=== PATIENT | male | born 1945 | race Caucasian/White ===

== ENCOUNTER 2023-02-10 07:24 | Day surgery (SDC) | payer MEDICARE ==
[2023-02-08 10:24] LABS: BASOPHILS # (AUTO) 0.07 K/uL (0.00-0.20); EOSINOPHILS # (AUTO) 0.24 K/uL (0.00-0.70); EOSINOPHILS % (AUTO) 3.4 % (0.0-8.0); HEMATOCRIT 41.8 % (42-54); IMMATURE GRANULOCYTE ABSOLUTE 0.01 K/uL (0-1); LYMPHOCYTES # (AUTO) 2.4 K/uL (1.0-4.8); LYMPHOCYTES % (AUTO) 33.6 % (21.0-51.0); MEAN CORPUSCULAR HEMOGLOBIN 31.5 pg (27.0-33.0); MEAN CORPUSCULAR HGB CONC 33.5 g/dL (32.0-36.0); MEAN CORPUSCULAR VOLUME 93.9 fL (79-99); MONOCYTES # (AUTO) 0.7 K/uL (0.1-1.0); MONOCYTES % (AUTO) 10.1 % (3.0-13.0); NEUTROPHILS # (AUTO) 3.6 K/uL (1.8-7.7); NEUTROPHILS % (AUTO) 51.8 % (40.0-77.0); PLATELET COUNT (AUTO) 171 K/uL (130-400); RED BLOOD CELL COUNT(AUTO) 4.45 MIL/uL (4.50-6.20); RED CELL DISTRIBUTION WIDTH 13.7 % (11.0-15.5)
[2023-02-08 10:32] LABS: CREATININE 0.9 mg/dL (0.5-1.5); POTASSIUM 4.3 mmol/L (3.5-5.1)
[2023-02-08 10:41] VITALS: BP 122/60; PULSE 57; RESP 19
[2023-02-10] VITALS (17 sets, daily range): BP systolic 94–118; BP diastolic 48–70; PULSE 50–68; RESP 12–18
[~2023-02-10] VITALS: Ht 175.3 cm; Wt 80.7 kg
[~2023-02-10 07:24] MED LIST: ASHW500C PO; ATOR40TA69 PO; AZEL137S11 NS; CALC-1038 PO; CARV12.511 PO; CARV6.25 PO; CHOL-34 PO; DUTA0.5C37 PO; FLUT16H NASAL; MORINGA PO; MULT-1285 PO; OLIVE LEAF EXTRACT PO; TADA20TA43 PO; TICA60TA PO
[2023-02-10] MEDS ORDERED: CEFTRIAXONE 1G VIAL ONE (07:53)
[2023-02-10] MEDS ORDERED: LACTATED RINGERS 1000ML 1,000 ML IV ONE (07:54)
[2023-02-10] MEDS ORDERED: ONDANSETRON 4MG INJ ONE (07:59)
[2023-02-10] MEDS ORDERED: GLYCOPYRROLATE 1 MG/5 ML SYRINGE ONE (07:59)
[2023-02-10] MEDS ORDERED: LIDOCAINE PF 100MG/5ML (2%) SYRINGE 5ML ONE (07:59)
[2023-02-10] MEDS ORDERED: SUCCINYLCHOLINE 200MG/10ML SYR ONE (07:59)
[2023-02-10] MEDS ORDERED: DEXAMETHASONE SOD PHOSPHATE 10MG/ML 1ML VIAL ONE (07:59)
[2023-02-10] MEDS ORDERED: MIDAZOLAM HCL 1 MG/ML 2ML VIAL ONE (07:59)
[2023-02-10] MEDS ORDERED: PROPOFOL 10 MG/ML 20ML VIAL IV ONE (07:59)
[2023-02-10] MEDS ORDERED: FENTANYL CITRATE PF 50 MCG/1 ML 2ML VIAL ONE ×2 (08:00→10:18)
[2023-02-10] MEDS ORDERED: NEOSTIGMINE 5MG/5ML SYR IV ONE (08:00)
[2023-02-10] MEDS ORDERED: ROCURONIUM 10MG/1ML SYR 10 MG/ML ML ONE (08:00)
[2023-02-10] MEDS ORDERED: PHENAZOPYRIDINE HCL 200 MG TABLET ONE (12:25)
== END 2023-02-10 12:52 | disposition home or self-care (01) ==
LOC: DAH 07:24
PROVIDERS: ATTEND Urology
DX: N40.1 Benign prostatic hyperplasia with lower urinary tract symptoms (principal); Z20.822 Contact with and (suspected) exposure to COVID-19; R39.14 Feeling of incomplete bladder emptying; R39.12 Poor urinary stream; N32.89 Other specified disorders of bladder; I10 Essential (primary) hypertension; I25.10 Atherosclerotic heart disease of native coronary artery without angina pectoris; E78.2 Mixed hyperlipidemia; G60.8 Other hereditary and idiopathic neuropathies; M79.609 Pain in unspecified limb; Z95.5 Presence of coronary angioplasty implant and graft; Z98.890 Other specified postprocedural states; Z90.49 Acquired absence of other specified parts of digestive tract; Z98.52 Vasectomy status
CPT/HCPCS: 80048; 85025; 36415; 52648; 93005; 88305; A6260; A4663; J7120 ×2; A4354; A4340; J3010 ×2; J0330; J3490; J1100; J2710; J2001; J0696; J2250; J2704; J2405; A4358; A4215; A4223; A4222; A4221; A4600; A4510

== ENCOUNTER 2023-02-17 14:02 | Observation (INO) | payer MEDICARE ==
[~2023-02-17] VITALS: Ht 175.3 cm; Wt 79.6 kg
[2023-02-17 15:45] LABS: BASOPHILS # (AUTO) 0.09 K/uL (0.00-0.20); BASOPHILS % (AUTO) 0.6 % (0.0-5.0); EOSINOPHILS # (AUTO) 0.34 K/uL (0.00-0.70); EOSINOPHILS % (AUTO) 2.2 % (0.0-8.0); HEMATOCRIT 45.5 % (42-54); IMMATURE GRANULOCYTE ABSOLUTE 0.09 K/uL (0-1); LYMPHOCYTES # (AUTO) 2.5 K/uL (1.0-4.8); LYMPHOCYTES % (AUTO) 16.6 % (21.0-51.0); MEAN CORPUSCULAR HEMOGLOBIN 31.3 pg (27.0-33.0); MEAN CORPUSCULAR HGB CONC 33.8 g/dL (32.0-36.0); MEAN CORPUSCULAR VOLUME 92.5 fL (79-99); MONOCYTES # (AUTO) 1.1 K/uL (0.1-1.0); NEUTROPHILS # (AUTO) 11.2 K/uL (1.8-7.7); PLATELET COUNT (AUTO) 173 K/uL (130-400); RED BLOOD CELL COUNT(AUTO) 4.92 MIL/uL (4.50-6.20); RED CELL DISTRIBUTION WIDTH 13.4 % (11.0-15.5); WHITE BLOOD COUNT (AUTO) 15.3 K/uL (4.8-10.8)
[2023-02-17] MEDS ORDERED: ASPIRIN 325MG TAB PO ONE (16:00)
[2023-02-17] MEDS ORDERED: FAMOTIDINE 20MG VIAL IV ONE (16:00)
[2023-02-17] MEDS ORDERED: METOCLOPRAMIDE 10 MG/2 ML VIAL IVP ONE (16:00)
[2023-02-17] MEDS ORDERED: 0.9%NACL 1000ML 1,000 ML IV ONE (16:00)
[2023-02-17 16:04] LABS: INR 0.94 (0.85-1.15)
[2023-02-17 16:06] LABS: PARTIAL THROMBOPLASTIN TIME 24.7 SEC (26.3-35.5)
[2023-02-17 16:09] LABS: ALBUMIN 3.7 g/dL (3.5-5.0); BILIRUBIN,TOTAL 0.9 mg/dL (0.2-1.0); CREATININE 1.1 mg/dL (0.5-1.5); TOTAL PROTEIN, SERUM 7.2 g/dL (6.0-8.3)
[2023-02-17 16:13] LABS: MYOGLOBIN 112 ng/mL (10-92)
[2023-02-17] MEDS: TICAGRELOR 90 MG TABLET PO SCH ×2 (18:02→18:05)
[2023-02-17] MEDS ORDERED: MORPHINE 2 MG SYG ONE (18:17)
[2023-02-17] MEDS ORDERED: MORPHINE 2 MG SYG IVP ONE (18:30)
[2023-02-17 21:45] VITALS: BP 127/68; PULSE 69; RESP 18
[2023-02-17] MEDS ORDERED: MORPHINE 2 MG SYG IVP PRN (23:00)
[2023-02-17] MEDS ORDERED: CEFTRIAXONE 1G VIAL IVPB SCH (23:00)
[2023-02-17] MEDS ORDERED: ONDANSETRON 4MG INJ IVP PRN (23:00)
[2023-02-17 23:40] VITALS: O2SAT 97
[2023-02-18] VITALS: BP 114/62; PULSE 63; RESP 18
[2023-02-18 04:00] VITALS: BP 129/67; PULSE 79; RESP 19
[2023-02-18 04:46] LABS: BASOPHILS # (AUTO) 0.04 K/uL (0.00-0.20); BASOPHILS % (AUTO) 0.3 % (0.0-5.0); EOSINOPHILS # (AUTO) 0.02 K/uL (0.00-0.70); EOSINOPHILS % (AUTO) 0.1 % (0.0-8.0); HEMATOCRIT 41.1 % (42-54); IMMATURE GRANULOCYTE ABSOLUTE 0.06 K/uL (0-1); LYMPHOCYTES # (AUTO) 1.9 K/uL (1.0-4.8); LYMPHOCYTES % (AUTO) 12.2 % (21.0-51.0); MEAN CORPUSCULAR HEMOGLOBIN 31.6 pg (27.0-33.0); MEAN CORPUSCULAR HGB CONC 34.1 g/dL (32.0-36.0); MEAN CORPUSCULAR VOLUME 92.8 fL (79-99); MONOCYTES # (AUTO) 1.6 K/uL (0.1-1.0); MONOCYTES % (AUTO) 10.2 % (3.0-13.0); NEUTROPHILS # (AUTO) 12.2 K/uL (1.8-7.7); NEUTROPHILS % (AUTO) 76.8 % (40.0-77.0); PLATELET COUNT (AUTO) 154 K/uL (130-400); RED BLOOD CELL COUNT(AUTO) 4.43 MIL/uL (4.50-6.20); RED CELL DISTRIBUTION WIDTH 13.6 % (11.0-15.5); WHITE BLOOD COUNT (AUTO) 15.9 K/uL (4.8-10.8)
[2023-02-18 05:11] LABS: ALBUMIN 2.9 g/dL (3.5-5.0); BILIRUBIN,TOTAL 0.6 mg/dL (0.2-1.0); CREATININE 0.9 mg/dL (0.5-1.5); TOTAL PROTEIN, SERUM 5.8 g/dL (6.0-8.3)
[2023-02-18] MEDS ORDERED: PANTOPRAZOLE 40 MG/VIAL IVP SCH (09:00)
== END 2023-02-18 13:45 | disposition home or self-care (01) ==
LOC: EDH 14:02 → EDHIP 17:34 → 4AH 21:45
PROVIDERS: ADMIT Internal Medicine; ATTEND Internal Medicine
DX: K80.50 Calculus of bile duct without cholangitis or cholecystitis without obstruction (principal); I21.4 Non-ST elevation (NSTEMI) myocardial infarction; D72.829 Elevated white blood cell count, unspecified; I25.10 Atherosclerotic heart disease of native coronary artery without angina pectoris; N20.0 Calculus of kidney; E78.5 Hyperlipidemia, unspecified; Z79.02 Long term (current) use of antithrombotics/antiplatelets; Z87.442 Personal history of urinary calculi
CPT/HCPCS: 96376; 96365; 96375 ×2; 99285; 82550 ×3; 83874 ×4; 84484 ×4; 80053 ×2; 83690; 85025 ×2; 85610; 85730; 36415 ×2; 71045; 74176; 76700; 93005; G0378 ×20; J3490; J2270 ×2; J7030; J0696; J2405; J2765; C9113; 96361

== ENCOUNTER 2023-04-25 06:25 | Day surgery (SDC) | payer MEDICARE ==
[2023-04-20 10:42] LABS: BASOPHILS # (AUTO) 0.08 K/uL (0.00-0.20); BASOPHILS % (AUTO) 1.1 % (0.0-5.0); EOSINOPHILS # (AUTO) 0.34 K/uL (0.00-0.70); EOSINOPHILS % (AUTO) 4.8 % (0.0-8.0); HEMATOCRIT 44.4 % (42-54); IMMATURE GRANULOCYTE ABSOLUTE 0.02 K/uL (0-1); LYMPHOCYTES # (AUTO) 2.5 K/uL (1.0-4.8); LYMPHOCYTES % (AUTO) 35.4 % (21.0-51.0); MEAN CORPUSCULAR HEMOGLOBIN 31.2 pg (27.0-33.0); MEAN CORPUSCULAR HGB CONC 33.6 g/dL (32.0-36.0); MEAN CORPUSCULAR VOLUME 93.1 fL (79-99); MONOCYTES # (AUTO) 0.7 K/uL (0.1-1.0); MONOCYTES % (AUTO) 10.2 % (3.0-13.0); NEUTROPHILS # (AUTO) 3.4 K/uL (1.8-7.7); NEUTROPHILS % (AUTO) 48.2 % (40.0-77.0); PLATELET COUNT (AUTO) 182 K/uL (130-400); RED BLOOD CELL COUNT(AUTO) 4.77 MIL/uL (4.50-6.20); RED CELL DISTRIBUTION WIDTH 13.2 % (11.0-15.5); WHITE BLOOD COUNT (AUTO) 7.1 K/uL (4.8-10.8)
[2023-04-20 10:54] LABS: CREATININE 1.1 mg/dL (0.5-1.5); POTASSIUM 4.4 mmol/L (3.5-5.1)
[2023-04-20 10:56] LABS: INR 0.98 (0.85-1.15); PROTHROMBIN TIME 11.4 SEC (9.6-11.6)
[2023-04-20 10:57] LABS: PARTIAL THROMBOPLASTIN TIME 28.5 SEC (26.3-35.5)
[2023-04-20 14:44] VITALS: BP 118/62; PULSE 59; RESP 14
[~2023-04-25] VITALS: Ht 175.3 cm; Wt 78.7 kg
[2023-04-25] VITALS (16 sets, daily range): BP systolic 109–126; BP diastolic 55–76; PULSE 56–77; RESP 13–18
[~2023-04-25 06:25] MED LIST changes: -TICA60TA PO
[2023-04-25] MEDS ORDERED: FENTANYL CITRATE PF 50 MCG/1 ML 5ML AMP IV ONE ×2 (06:29→06:48)
[2023-04-25] MEDS ORDERED: BUPIVACAINE/PF 0.25% 30ML VIAL IJ ONE (06:48)
[2023-04-25] MEDS ORDERED: EPINEPHRINE PF 1MG (1:1,000) 1 MG/ML AMP ONE (06:48)
[2023-04-25] MEDS ORDERED: DEXAMETHASONE SOD PHOSPHATE 10MG/ML 1ML VIAL ONE (06:49)
[2023-04-25] MEDS ORDERED: SUCCINYLCHOLINE 200MG/10ML SYR ONE (06:49)
[2023-04-25] MEDS ORDERED: ONDANSETRON 4MG INJ ONE (06:49)
[2023-04-25] MEDS ORDERED: LIDOCAINE PF 100MG/5ML (2%) SYRINGE 5ML ONE (06:49)
[2023-04-25] MEDS ORDERED: NEOSTIGMINE 5MG/5ML SYR IV ONE (06:50)
[2023-04-25] MEDS ORDERED: ROCURONIUM 10MG/1ML SYR 10 MG/ML ML ONE (06:50)
[2023-04-25] MEDS ORDERED: PROPOFOL 10 MG/ML 20ML VIAL IV ONE (06:50)
[2023-04-25] MEDS ORDERED: GLYCOPYRROLATE 1 MG/5 ML SYRINGE ONE (06:50)
[2023-04-25] MEDS ORDERED: KETAMINE 50MG/ML SYRINGE 50 MG/ML DISP.SYRIN ONE (06:54)
[2023-04-25] MEDS ORDERED: MIDAZOLAM HCL 1 MG/ML 5ML VIAL ONE (06:54)
[2023-04-25] MEDS ORDERED: LIDOCAINE HCL 400MG/20ML VIAL ONE (06:54)
[2023-04-25] MEDS ORDERED: LACTATED RINGERS 1000ML 1,000 ML IV ONE (06:55)
[2023-04-25] MEDS ORDERED: CEFAZOLIN SODIUM 2 GM VIAL ONE (06:55)
[2023-04-25] MEDS ORDERED: CEFAZOLIN SODIUM 2 GM VIAL IVPB ONE (07:35)
[2023-04-25] MEDS ORDERED: BUPIVACAINE/EPI/PF 0.25% 30ML VIAL IJ ONE (07:43)
[2023-04-25] MEDS ORDERED: IOHEXOL-350 50ML VIAL IV ONE ×2 (07:52→07:55)
[2023-04-25] MEDS ORDERED: KETOROLAC 30MG VIAL (30MG/ML) ONE (07:55)
[2023-04-25] MEDS ORDERED: EPHEDRINE SULFATE 50 MG/ML AMPULE ONE (07:58)
[2023-04-25] MEDS ORDERED: DOCU-116 PO (08:14)
[2023-04-25] MEDS ORDERED: METH-662 PO (08:14)
[2023-04-25] MEDS ORDERED: TRAM50TA4 PO (08:14)
[2023-04-25] MEDS ORDERED: GABA-529 PO (08:14)
== END 2023-04-25 10:10 | disposition home or self-care (01) ==
LOC: DAH 06:25
PROVIDERS: ATTEND Surgery
DX: K80.10 Calculus of gallbladder with chronic cholecystitis without obstruction (principal); I10 Essential (primary) hypertension; I25.2 Old myocardial infarction; E04.9 Nontoxic goiter, unspecified; Z82.3 Family history of stroke; Z80.9 Family history of malignant neoplasm, unspecified; Z87.891 Personal history of nicotine dependence; Z72.89 Other problems related to lifestyle; Z79.899 Other long term (current) drug therapy; Z95.5 Presence of coronary angioplasty implant and graft; Z90.49 Acquired absence of other specified parts of digestive tract; Z98.890 Other specified postprocedural states
CPT/HCPCS: 80048; 85025; 85610; 85730; 36415; 47563; 88304; 74300; A6260; A4663; J7030; C1758; J7120; J3010 ×2; J3490 ×5; J0330; J1100; J2710; J0665; J2001; J0171; J2250; J2704; J2405; J1885; Q9967 ×2; J0690 ×2; A4649 ×2; A4930 ×2; A4215; A4223; A4222; A4221; A4216; A4600

== ENCOUNTER 2024-02-23 08:28 | Day surgery (SDC) | payer MEDICARE ==
[2024-02-22 15:08] LABS: BASOPHILS # (AUTO) 0.07 K/uL (0.00-0.20); BASOPHILS % (AUTO) 0.9 % (0.0-5.0); EOSINOPHILS # (AUTO) 0.26 K/uL (0.00-0.70); EOSINOPHILS % (AUTO) 3.4 % (0.0-8.0); HEMATOCRIT 41.1 % (42-54); IMMATURE GRANULOCYTE ABSOLUTE 0.02 K/uL (0-1); LYMPHOCYTES # (AUTO) 2.9 K/uL (1.0-4.8); LYMPHOCYTES % (AUTO) 38.6 % (21.0-51.0); MEAN CORPUSCULAR HEMOGLOBIN 31.6 pg (27.0-33.0); MEAN CORPUSCULAR HGB CONC 33.3 g/dL (32.0-36.0); MEAN CORPUSCULAR VOLUME 94.7 fL (79-99); MONOCYTES # (AUTO) 0.8 K/uL (0.1-1.0); MONOCYTES % (AUTO) 10.7 % (3.0-13.0); NEUTROPHILS # (AUTO) 3.5 K/uL (1.8-7.7); NEUTROPHILS % (AUTO) 46.1 % (40.0-77.0); PLATELET COUNT (AUTO) 170 K/uL (130-400); RED BLOOD CELL COUNT(AUTO) 4.34 MIL/uL (4.50-6.20); RED CELL DISTRIBUTION WIDTH 13.8 % (11.0-15.5); WHITE BLOOD COUNT (AUTO) 7.5 K/uL (4.8-10.8)
[2024-02-22 15:10] LABS: APPEARANCE,URINE CLEAR (CLEAR); BILIRUBIN,URINE NEGATIVE (NEGATIVE); COLOR,URINE YELLOW (YELLOW); GLUCOSE, URINE (UA) NEGATIVE (NEGATIVE); KETONES,URINE NEGATIVE (NEGATIVE); LEUKOCYTE ESTERASE ,URINE 75 Leu/uL (NEGATIVE); NITRATE,URINE NEGATIVE (NEGATIVE); OCCULT BLOOD,URINE NEGATIVE (NEGATIVE); PH,URINE 6.5 (5.0-8.0); PROTEIN,URINE 10 mg/dL (NEGATIVE); UROBILINOGEN,URINE 0.2 mg/dL (0.2-1.0)
[2024-02-22 15:11] LABS: ADD UA MICROSCOPIC YES
[2024-02-22 15:14] LABS: BACTERIA,URINE RARE /HPF (None Seen); MUCUS,URINE RARE LPF (None Seen); SQUAMOUS EPITHELIAL CELL,UR RARE /HPF (0-2); YEAST,URINE BUDDING RARE /HPF (None Seen)
[2024-02-22 15:16] LABS: CREATININE 1.1 mg/dL (0.5-1.3)
[2024-02-22 15:20] LABS: INR 1.03 (0.85-1.15); PROTHROMBIN TIME 11.1 SEC (9.6-11.6)
[2024-02-22 15:21] LABS: PARTIAL THROMBOPLASTIN TIME 26.5 SEC (26.3-35.5)
[2024-02-22 15:30] LABS: B-TYPE NATRIURETIC PEPTIDE 178 pg/mL (0-100)
[2024-02-22 15:33] VITALS: BP 128/66; PULSE 60; RESP 18; TEMP 98.4
[~2024-02-23] VITALS: Ht 175.3 cm; Wt 81.6 kg
[~2024-02-23 08:28] MED LIST changes: +AEC81 PO; -ATOR40TA69 PO; +ATOR40TA71 PO; -AZEL137S11 NS; -CARV12.511 PO; -TADA20TA43 PO; +TADA20TA72 PO
[2024-02-23 08:33] VITALS: BP 114/64; PULSE 60; RESP 18; TEMP 97.8
[2024-02-23] MEDS: 0.9%NACL 1000ML 1,000 ML IV SCH (09:35)
[2024-02-23] MEDS ORDERED: LIDOCAINE HCL 400MG/20ML VIAL ONE ×3 (10:19→10:58)
[2024-02-23] MEDS ORDERED: MIDAZOLAM HCL 1 MG/ML 2ML VIAL ONE (10:50)
[2024-02-23 11:44] VITALS: BP 104/61; PULSE 59; RESP 13; TEMP 97.2
[2024-02-23 11:59] VITALS: BP 114/60; PULSE 60; RESP 12
[2024-02-23 12:15] VITALS: BP 116/60; PULSE 60; RESP 13; TEMP 97.2
== END 2024-02-23 12:15 | disposition home or self-care (01) ==
LOC: DAH 08:28
PROVIDERS: ATTEND Internal Medicine Cardiovascular Disease
DX: R55 Syncope and collapse (principal); I25.10 Atherosclerotic heart disease of native coronary artery without angina pectoris; I10 Essential (primary) hypertension; E78.00 Pure hypercholesterolemia, unspecified; G60.8 Other hereditary and idiopathic neuropathies; Z98.61 Coronary angioplasty status; Z95.818 Presence of other cardiac implants and grafts; F17.210 Nicotine dependence, cigarettes, uncomplicated; Z79.899 Other long term (current) drug therapy
CPT/HCPCS: 80048; 83880; 85025; 85610; 85730; 87086; 81001; 36415; 33286; A4649; J3490 ×2; J7030; J2250; A4215; A4222; A4221; A4663; A4216; A4606; A4223 ×3; 99156; 99157

== ENCOUNTER 2024-09-06 22:44 | Emergency (ER) | payer MEDICARE ==
[~2024-09-06] VITALS: Ht 175.3 cm; Wt 81.6 kg
--- NOTE | 2024-09-06 22:52 | EKG ---
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
--- NOTE | 2024-09-06 23:17 | ERN ---
ED Note History of Present Illness Stated Complaint: " COLD CHILLS" Chief Complaint: Other Problems Time Seen by MD: 22:49 Dictation: This is a 79-year-old male who presented to the emergency room with complaints of severe cold chill that started around 2100. He checked his vital signs and felt like his heart rate was 80s and blood pressure was 160/80 which was high for him he got concerned and came to the ER for further evaluation he denied any chest pain diaphoresis PND orthopnea. Eventually he burped multiple times and felt better. He stated that he took his Coreg around 8 and his prostate medicine Avodart around 8:30 p.m. dinner was around 6 ate chicken sandwich and curly fries. 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 Joseph Primary care physician- Allergies: Coded Allergies: No Known Allergies (Unverified Allergy, Unknown, 02/08/23) Home Meds Reported Medications Aspirin (ASPIRIN 81 MG ECTAB) 81 Mg Ectab, 81 MG PO DAILY, TAB.EC 02/22/24 Atorvastatin Calcium (Atorvastatin Calcium) 40 Mg Tablet, 40 MG PO HS, TAB 02/22/24 [[place]] No Conflict Check, 700 MG PO HS 02/08/23 Ashwagandha Root Extract (Ashwagandha) 500 Mg Capsule, 500 MG PO HS, CAP 02/08/23 [[place] Extract] No Conflict Check, 750 MG PO HS 02/08/23 Cholecalciferol (Vitamin D3) (Vitamin D3) 25 Mcg (1000 Unit) Tablet, 25 MCG PO DAILY, TAB 02/08/23 Calcium Carbonate (Calcium) 500 Mg Calcium (1250 Mg) Tablet, 500 MG PO DAILY, TAB 02/08/23 Multivit-Min/FA/Lycopen/Lutein (Men 50 Plus Multivitamin Tab) 300 Mcg-60 Mcg-600 Mcg-300 Mcg Tablet, 1 EACH PO DAILY, TAB 02/08/23 Tadalafil (Tadalafil) 20 Mg Tablet, 20 MG PO HS PRN for ERECTILE DYSFUNCTION, TAB 02/08/23 Fluticasone Propionate (Flonase Nasal [place]) 50 Mcg/Actuation [place], 2 SPRAY NASAL HS PRN for NASAL CONGESTION, SPRAY 02/08/23 Dutasteride (Dutasteride) 0.5 Mg Capsule, 0.5 MG PO HS, CAP 02/08/23 Carvedilol (Carvedilol) 6.25 Mg Tablet, 6.25 MG PO AM, TAB 02/08/23 Past Medical History Past Medical History: No Pertinent History, CAD Surgical History: Appendectomy, Cholecystectomy Surgical History Other: PROSTATE. CARDIAC STENTS, CATARACTS Family History: Negative Social History: Negative RN Note Reviewed/Agreed w/PFSH: Yes Review of System Dictation Constitutional: Negative for fever,chills, and weight loss Eyes: Negative for injury, pain,redness, and discharge ENT: Negative for injury,pain or swelling Cardiovascular: Negative for chest pain, palpitations, and edema Respiratory: Negative for shortness of breath, cough, and wheezing, Abdomen/GI: Negative for abdominal pain, nausea, vomiting, diarrhea, and constipation Back: Negative for injury and pain : Negative for injury, bleeding and discharge MS/Extremity: Negative for injury and deformity Skin: Negative for rash, and discoloration Neuro: Negative for headache, weakness, numbness, tingling, and seizure Psych: Negative for suicide ideation, homicidal ideation, and hallucinations Initial Vital Sign VS Vital Signs Date Time Temp Pulse Resp B/P (MAP) Pulse Ox O2 Delivery O2 Flow Rate FiO2 09/06/24 22:46 98.1 79 16 150/90 99 Room Air 09/06/24 23:18 0 21 Physical Exam Dictation General: awake, alert, NAD Head/Face: Normocephalic, atraumatic Eyes: PERRL, EOMI, vision at baseline ENT: oral cavity clear, TMs clear, no signs of infection Neck: Trachea midline, supple, no nuchal rigidity Cardiovascular: RRR, normal S1/S2, No MRGs, no JVD Respiratory: CTAB, no respiratory distress, No rales or wheezes Abdomen: Soft, non-tender, non-distended, normal bowel sounds, no guarding or rebound. Skin: Warm, dry, normal turgor, no rash MS/Extremity: Pulses equal, no cyanosis, neurovascular intact, FROM Neuro: COAx4, GCS 15, strength 5/5, CN 2-12 intact, normal cerebellar exam, normal gait, Psych: Normal behavior, mood, and affect normal Extremities-trace edema without any palpable cords, Homans sign is negative Results (Laboratory/Radiology) Laboratory/Radiology Laboratory Tests Test 09/06/24 23:18 White Blood Count 7.5 K/uL (4.8-10.8) Red Blood Count 4.57 MIL/uL (4.50-6.20) Hemoglobin 14.5 g/dL (14.0-18.0) Hematocrit 43.3 % (42-54) Mean Corpuscular Volume 94.7 fL (79-99) Mean Corpuscular Hemoglobin 31.7 pg (27.0-33.0) Mean Corpuscular Hemoglobin Concent 33.5 g/dL (32.0-36.0) Red Cell Distribution Width 13.7 % (11.0-15.5) Platelet Count 185 K/uL (130-400) Mean Platelet Volume 11.7 fL (7.5-10.5) H Immature Granulocyte % (Auto) 0.1 % (0-1) Neutrophils (%) (Auto) 45.4 % (40.0-77.0) Lymphocytes (%) (Auto) 37.2 % (21.0-51.0) Monocytes (%) (Auto) 13.1 % (3.0-13.0) H Eosinophils (%) (Auto) 3.3 % (0.0-8.0) Basophils (%) (Auto) 0.9 % (0.0-5.0) Neutrophils # (Auto) 3.4 K/uL (1.8-7.7) Lymphocytes # (Auto) 2.8 K/uL (1.0-4.8) Monocytes # (Auto) 1.0 K/uL (0.1-1.0) Eosinophils # (Auto) 0.25 K/uL (0.00-0.70) Basophils # (Auto) 0.07 K/uL (0.00-0.20) Absolute Immature Granulocyte (auto 0.01 K/uL (0-1) Nucleated Red Blood Cells 0.0 % (0.0-0.19) Sodium Level 137 mmol/L (136-145) Potassium Level 3.8 mmol/L (3.5-5.1) Chloride Level 101 mmol/L (101-111) Carbon Dioxide Level 32 mmol/L (21-32) Blood Urea Nitrogen 18 mg/dL (7-18) Creatinine 1.1 mg/dL (0.5-1.3) Glomerular Filtration Rate Calc 69 mL/min (>90) Random Glucose 97 mg/dL (70-105) Total Calcium 9.2 mg/dL (8.5-10.1) Total Creatine Kinase 46 U/L (21-232) # Troponin I High Sensitivity 11 ng/L (4-75) B-Type Natriuretic Peptide 151 pg/mL (0-100) H Labs Reviewed?: Yes EKG Comment: Twelve lead EKG done on 09 06 2024 at 10:49 p.m. showed a heart rate of 81, CA interval 155, QRS 91, QT/QTC 409/477 Impression normal sinus rhythm with a extremely low voltage overall and occasional PVCs presence of Q's in the anterior leads and septal leads sug gestive of a possible previous MS. Interpreted by ER MD Dr. Evans The current EKG was compared to the EKG done on 02/17/2023 at 8:08 p.m. which was about the same however the anterior leads were of decent voltage ED Course ED Course Orders Procedure Category Date Status Time Vital Signs Per CPOE 09/06/24 Transmitted Routine 22:46 B-Type Natriuretic LAB 09/06/24 Complete Peptide 22:46 Chest 1vw RAD 09/06/24 Resulted 22:46 12 Lead Ekg Tracing- EKG 09/06/24 Complete Technical 22:46 Oxygen By Nc/Pulse Ox CPOE 09/06/24 Transmitted 22:46 Maintain Iv CPOE 09/06/24 Transmitted 22:46 Iv Insertion CPOE 09/06/24 Transmitted 22:46 Cardiac Monitoring CPOE 09/06/24 Transmitted 22:46 Pulse Oximetry With CPOE 09/06/24 Transmitted Vs And Prn 22:46 Cbc With Differential LAB 09/06/24 Complete 22:46 Activity: Br W/Brp CPOE 09/06/24 Transmitted With Assist 22:46 Creatine Kinase, Total LAB 09/06/24 Complete 22:46 Troponin I High LAB 09/06/24 Complete Sensitivity 22:46 Urinalysis Profile LAB 09/06/24 Logged 22:46 Basic Metabolic Panel LAB 09/06/24 Complete 22:46 Vital Signs Date Time Temp Pulse Resp B/P (MAP) Pulse Ox O2 Delivery O2 Flow Rate FiO2 09/06/24 23:18 97.9 82 20 142/72 100 Room Air* 0 21 09/06/24 22:46 98.1 79 16 150/90 99 Room Air We will perform diagnostic labs, 12:29 a.m. imaging and administer medications according to the patient's complaint. Once the results are available, will review and personally interpreted the labs to rule out any acute life- threatening emergency the trach require immediate intervention and treatment. I will then re-evaluate the patient after treatment and diagnostic exams have return to determine whether the patient requires any further testing, can safely be discharged home or need further admission to hospital for additional treatment and evaluation. 12:00 a.m. had a long discussion with the patient and went over the labs CBC BNP 7 are within normal limits troponins are 11 brain natriuretic peptide 151. Chest x-ray is negative for any acute infiltrate and EKG does not show any acute coronary event . Patient is already feeling better and I shared possibilities that he was wa tching an intense movie during this time and might have had a sympathetic surge. However, diurnal variation of the blood pressure and gastroesophageal reflux could all be contributing to the symptoms. He denied any diaphoresis real chest pain with radiation or chest pressure. I suggested a 2nd set of troponins in the next couple hours but he indicated that he felt so much better that he would rather be discharged and if his symptoms worsen he is willing to come back to the ER. He also stated that he might have dozed off and does give a history of snoring when he sleeps on his back. It is conceivable if patient had an arousal with increased blood pressure and heart rate. He will discuss with Dr. Harris his primary care physician HEART Score Response (Comments) Value History: Low suspicion (0) 0 EKG: Normal 0 Age: > 65yrs (+2) 2 Initial Troponin: 1-3x Normal Limit (+1) 1 HEART Score Risk: Low Risk for MACE (1-3) Total 3 Medical Decision Making MDM MDM: Differential diagnosis: Sudden sympathetic surge, apnea with arousal, diurnal variation of blood pressure, gastroesophageal reflux with chest pressure Rationale: Tests considered and ordered secondary to shared decision making include: Previous outside records reviewed: Old ER visits. Risk of complication and/or morbidity or mortality of patient management: None Medications-Per medication reconciliation Need for hospitalization: Patient does not meet criteria for hospitalization. Need for emergency major/minor surgery: No There are no social concerns with this patient. Prescription drug management Prescriptions will include symptomatic care Patient's prior external medical records from other ER visits were reviewed by me as indicated. Prior testing and results from previous visits were reviewed. Prior tests were taken into account with medical decision making and resource utilization, independent historian/historians were used to obtain complete medical history. I independently interpreted the test that were performed, results were reviewed by me and considered findings on radiology if ordered. Medical management and examination interpretation discussions were had by me with other qualified healthcare professionals as indicated for the patient's care. DX & DISP Disposition: Discharge Departure Impression: Primary Impression: Transient hypertension Additional Impression: Chest pain, atypical Condition: Stable Additional Instructions: Patient and the caregiver have been informed of all the diagnostic tests and the imaging conducted during the today's visit to the emergency room and has verbalized understanding of the results I have personally reviewed and interpreted all diagnostic exams performed here in the ER today as well as the vital signs documented by the nursing staff. The patient is now being discharged to home and should follow up with the primary care physician or the specialist as directed by the ER staff. Follow-up with primary care provider in 1 to 2 days. Take medications as directed here in the emergency room. Okay to continue home medications unless otherwise discussed during your visit in the emergency room today. Return to your nearest emergency room if symptoms worsen or if there is no improvement. Call 911 if you need immediate assistance. Take Tylenol or Motrin [id number] as needed and if no contraindications are present. Increase oral hydration. A wound culture or urine culture was ordered here in the emergency room department please follow-up with primary care provider and advise them to get repeat ports from our facility. If you had any Manohar wrap/splints that were applied here, please do not remove them until you see your primary care or specialty. Referrals: RADHA HARRIS MD (PCP) LIU EVANS MD Sep 06, 2024 23:17
[2024-09-06 23:30] LABS: BASOPHILS # (AUTO) 0.07 K/uL (0.00-0.20); BASOPHILS % (AUTO) 0.9 % (0.0-5.0); EOSINOPHILS # (AUTO) 0.25 K/uL (0.00-0.70); EOSINOPHILS % (AUTO) 3.3 % (0.0-8.0); HEMATOCRIT 43.3 % (42-54); IMMATURE GRANULOCYTE ABSOLUTE 0.01 K/uL (0-1); LYMPHOCYTES # (AUTO) 2.8 K/uL (1.0-4.8); LYMPHOCYTES % (AUTO) 37.2 % (21.0-51.0); MEAN CORPUSCULAR HEMOGLOBIN 31.7 pg (27.0-33.0); MEAN CORPUSCULAR HGB CONC 33.5 g/dL (32.0-36.0); MEAN CORPUSCULAR VOLUME 94.7 fL (79-99); MONOCYTES % (AUTO) 13.1 % (3.0-13.0); NEUTROPHILS # (AUTO) 3.4 K/uL (1.8-7.7); NEUTROPHILS % (AUTO) 45.4 % (40.0-77.0); PLATELET COUNT (AUTO) 185 K/uL (130-400); RED BLOOD CELL COUNT(AUTO) 4.57 MIL/uL (4.50-6.20); RED CELL DISTRIBUTION WIDTH 13.7 % (11.0-15.5); WHITE BLOOD COUNT (AUTO) 7.5 K/uL (4.8-10.8)
--- NOTE | 2024-09-06 23:34 | HMCIMG ---
CHEST 1VW HISTORY: Chest pain COMPARISON: 02/17/2023 FINDINGS: A frontal projection of the chest was obtained. No acute pulmonary infiltrates is seen. The heart is borderline enlarged. Degenerative changes are seen. Prominent interstitial markings are seen. No evidence of aortic calcification is seen. IMPRESSION: 1. No acute pulmonary infiltrate is seen. Prominent interstitial markings.
[2024-09-06 23:39] LABS: CREATININE 1.1 mg/dL (0.5-1.3); POTASSIUM 3.8 mmol/L (3.5-5.1)
[2024-09-06 23:55] LABS: B-TYPE NATRIURETIC PEPTIDE 151 pg/mL (0-100)
[2024-09-07 00:41] VITALS: BP 134/68; PULSE 78; RESP 18; TEMP 98.6; O2SAT 99
== END 2024-09-07 00:56 | disposition home or self-care (01) ==
LOC: EDH 22:44
DX: R03.0 Elevated blood-pressure reading, without diagnosis of hypertension (principal); R07.89 Other chest pain; E78.5 Hyperlipidemia, unspecified; I25.10 Atherosclerotic heart disease of native coronary artery without angina pectoris; Z79.82 Long term (current) use of aspirin; Z90.49 Acquired absence of other specified parts of digestive tract; Z95.5 Presence of coronary angioplasty implant and graft
CPT/HCPCS: 36415; 71045; 80048; 82550; 83880; 84484; 85025; 93005; 99285